=== PATIENT | male | born 1965 | race Asian ===

== ENCOUNTER → 2017-09-17 | Outpatient (CLI) | payer OTHER ==
[~2017-09-17] MED LIST: DIATRIZOATE MEGL/DIATRIZOA SOD 30 ML BTL PO ONE; IOPAMIDOL 370 MG/ML 200 ML INFUS..BTL INJ ONE; SODIUM CHLORIDE 0.9% 50ML 50 ML ONE
--- NOTE | 2017-09-17 12:22 | Diagnostic Imaging Report ---
EXAM: CT Abdomen and Pelvis WITH contrast INDICATION: \[id number] \S\1100 \S\EPIGASTRIC PAIN COMPARISON: None. TECHNIQUE: Abdomen and pelvis were scanned utilizing a multidetector helical scanner from the lung base to the pubic symphysis after administration of IV contrast. Coronal and sagittal reformations were obtained. Routine protocol was performed. Scan was performed when during portal venous phase. IV CONTRAST: 100 mL of Isovue-370 ORAL CONTRAST: Gastroview COMPLICATIONS: None RADIATION DOSE: Total DLP: 327.30 mGy*cm Estimated effective dose: (DLP x 0.015 x size factor) mSv CTDIvol has been reviewed. It is below the limits set by the Radiation Protocol Committee (RPC). FINDINGS: LINES and TUBES: None. LOWER THORAX: 6 mm groundglass right middle lobe nodule (series 2, image 4). Mild dependent atelectasis. HEPATOBILIARY: No focal hepatic lesions. No biliary ductal dilation. GALLBLADDER: No radio-opaque stones or sludge. No wall thickening. SPLEEN: No splenomegaly. PANCREAS: No focal masses or ductal dilatation. ADRENALS: No adrenal nodules KIDNEYS/URETERS: Kidneys enhance symmetrically. No hydronephrosis. No cystic or solid mass lesions. No stones. GI TRACT: No abnormal distention, wall thickening, or evidence of bowel obstruction. Appendix is normal. PELVIC ORGANS/BLADDER: Unremarkable. LYMPH NODES: No lymphadenopathy. VESSELS: Unremarkable. PERITONEUM / RETROPERITONEUM: No free air or fluid. BONES: Unremarkable. SOFT TISSUES: Unremarkable. IMPRESSION: 1. No acute inflammatory process in the abdomen/pelvis. 2. 6 mm groundglass right middle lobe lung nodule. Recommend follow-up with low-dose chest CT in 6-12 months to ensure stability. Signed by: Dr. Thad Thapa MD on 09/17/2017 12:19 PM
== END ==
LOC: CT 09:42
PROVIDERS: ATTEND Internal Medicine Gastroenterology
DX: R10.13 Epigastric pain (principal); Z12.11 Encounter for screening for malignant neoplasm of colon; Z80.0 Family history of malignant neoplasm of digestive organs
CPT/HCPCS: 74177; Q9967

== ENCOUNTER → 2018-03-25 | Outpatient (CLI) | payer OTHER ==
--- NOTE | 2018-03-25 08:11 | Diagnostic Imaging Report ---
PROCEDURE: CT CHEST WITHOUT CONTRAST CT scan of the chest WITHOUT intravenous contrast, using standard protocol. TECHNIQUE: The chest was scanned utilizing a multidetector helical scanner from the apex to the level of the adrenal glands. No IV contrast was administered because of referring physician request. Coronal and sagittal multiplanar reformations were obtained. COMPARISON: CT abdomen and pelvis without contrast 09/17/2017. INDICATIONS: NODULE FINDINGS: Lines/tubes: None. Lungs and Airways: 6 mm mixed groundglass and solid nodule in the right middle lobe is unchanged relative to 09/17/2017. Paramediastinal scar in the medial segment of the right middle lobe is also unchanged. 4 mm nodule in the right lower lobe seen on series 3 image 77. A linear scar in the posterior basal segment of left lower lobe. 4 mm juxtapleural nodule in the left lower lobe seen on series 3 image 83. 2 mm nodule in the left upper lobe seen on series 3 image 44. No airspace consolidation, fibrotic change, or bronchiectasis. Trachea, mainstem bronchi, and central lobar and segmental bronchi are patent. Pleura: The pleural spaces are clear. Heart and mediastinum: Visualized portions of the thyroid gland are unremarkable. There is no ectasia or aneurysmal dilatation of the thoracic aorta. Pulmonary outflow tract is of normal caliber. No axillary, hilar, or mediastinal lymphadenopathy. Normal heart size. No pericardial effusion. Soft tissues: Normal. Abdomen: Visualized portions of the liver, spleen, pancreas, adrenals, and kidneys are unremarkable. Bones: No osseous destructive lesions. Mild degenerative disc changes of the thoracic spine. IMPRESSION: Scattered small bilateral pulmonary nodules measuring up to 5-6 mm. An additional followup CT scan of the chest without contrast in one year is suggested to document continued stability per Fleischner society 2017 guidelines. Dictated by: Yao Flaherty M.D. on 03/25/2018 at 8:15 Electronically approved by: Yao Flaherty M.D. on 03/25/2018 at 8:15
== END ==
LOC: CT 07:41
PROVIDERS: ATTEND Internal Medicine Pulmonary Disease
DX: J98.4 Other disorders of lung (principal)
CPT/HCPCS: 71250

== ENCOUNTER → 2019-01-20 | Outpatient (CLI) | payer OTHER ==
--- NOTE | 2019-01-20 09:29 | Diagnostic Imaging Report ---
EXAM: CT Chest WITHOUT contrast 01/20/2019 7:10 AM INDICATION: Disorder of lungs COMPARISON: None. No prior imaging is available on PACS for comparison. TECHNIQUE: Chest was scanned utilizing a multidetector helical scanner from the lung apex through the level of the adrenal glands without administration of IV contrast. Absence of intravenous contrast decreases sensitivity for detection of lymphadenopathy and vascular pathology. Coronal and sagittal reformations were obtained. Routine protocol was performed. Dose modulation, iterative reconstruction, and/or weight based adjustment of the mA/kV was utilized to reduce the radiation dose to as low as reasonably achievable. IV CONTRAST: None RADIATION DOSE: Total DLP: 527.56 mGy*cm Estimated effective dose: (DLP x 0.014 x size factor) mSv COMPLICATIONS: None FINDINGS: LINES/ TUBES: None. LUNGS AND AIRWAYS: There is a 5 mm indeterminate nodule in the right middle lobe (series 3, image 91). Another 4 mm nodule is seen in the right lower lobe (image 80). There is mild centrilobular emphysema with small pneumatoceles mainly the upper lobes. There is scarring or atelectasis in the lingula and in the left lower lobe. Trachea and main bronchi are clear. PLEURA: No pleural effusion, pneumothorax or pleural calcification. HEART AND MEDIASTINUM: The thyroid gland is normal. No mediastinal, hilar or axillary lymphadenopathy. The heart is normal in size.. There is no pericardial effusion. No dilatation of the thoracic aorta or main pulmonary artery. UPPER ABDOMEN: Included portions of the unenhanced liver, spleen, pancreas, adrenals and kidneys unremarkable. BONES: No acute or suspicious bony lesion. SOFT TISSUES: Superficial surrounding soft tissue IMPRESSION: 1. There are small indeterminate nodules in the right middle lobe and right lower lobe. Recommend follow-up noncontrast low-dose chest CT in 6 months for high risk patient and 12 months for a low risk patient. 2. Mild centrilobular emphysematous changes. Signed by: Dr. Jose Garcia M.D. on 01/20/2019 9:25 AM
== END ==
LOC: CT 07:01
PROVIDERS: ATTEND Internal Medicine Pulmonary Disease
DX: J98.4 Other disorders of lung (principal)
CPT/HCPCS: 71250